=== PATIENT | female | born 1965 | race Caucasian/White ===

== ENCOUNTER → 2016-09-21 | Outpatient (CLI) | payer BC ==
[2016-09-21 21:31] LABS: BLOOD UREA NITROGEN 17 MG/DL (7-18); CREATININE FOR GFR 0.75 MG/DL (0.55-1.02); GLOMERULAR FILTRATION RATE > 60.0 (>51)
== END ==
LOC: M LRY 16:46
PROVIDERS: ATTEND Psychiatry & Neurology Neurology
DX: I10 Essential (primary) hypertension (principal)

== ENCOUNTER → 2016-09-26 | Outpatient (CLI) | payer BC ==
--- NOTE | 2016-09-26 13:36 | REP ---
MR BRAIN WITHOUT AND WITH CONTRAST: HISTORY: Multiple sclerosis. CONTRAST: ProHance 16 mL. COMPARISON: 01/13/2012. Multiple areas of increased signal intensity on T2-weighted images are present in the periventricular and subcortical white matter. Additional areas of increased signal intensity are present in the corpus callosum. These are unchanged compared to the previous study. There are no new areas of abnormal signal intensity. There is no intraparenchymal, hemorrhage, infarct, mass or midline shift. The ventricular system is normal in appearance. There is no extracerebral collection. A small extra-axial mass is present overlying the right cerebellum. This is isointense on T1 and hypointense on T2-weighted images. There is moderate homogenous enhancement with contrast. This represents a meningoma. The meningoma measures 1.2 cm in transverse by 1.2 cm in AP dimensions. There is very minimal mass effect on the adjacent right cerebellum. The fourth ventricle is midline in position. The sinuses are clear. IMPRESSION: 1. The above findings are consistent with multiple sclerosis that are unchanged compared to the previous study. 2. 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 Signed by Paul Montesinos MD 09/26/2016 01:39 P
== END ==
LOC: M RAD 10:59
PROVIDERS: ATTEND Psychiatry & Neurology Neurology
DX: G43.809 Other migraine, not intractable, without status migrainosus (principal); R53.83 Other fatigue
CPT/HCPCS: 70553; A9576

== ENCOUNTER → 2016-12-05 | Outpatient (REF) | payer BC ==
[2016-12-05 14:21] LABS: BASO % 0.7 % (0.0-1.0); EOS % 1.6 % (0.0-3.0); LARGE UNSTAINED CELL # 0.1 K/mm3 (0.0-0.4); LARGE UNSTAINED CELL % 3.9 % (0.0-4.0); LYMPH # 0.6 K/mm3 (1.5-4.5); LYMPH % 15.3 % (24.0-44.0); MEAN CORPUSCULAR HEMOGLOBIN 31.2 pg (27.0-33.0); MEAN CORPUSCULAR HGB CONC 33.4 g/dl (32.0-36.5); MEAN CORPUSCULAR VOLUME 93.2 fl (80.0-96.0); MONO # 0.3 K/mm3 (0.0-0.8); MONO % 8.5 % (0.0-5.0); NEUTROPHILS # 2.3 K/mm3 (1.8-7.7); PLATELET COUNT, AUTOMATED 205 k/mm3 (150-450); RED CELL DISTRIBUTION WIDTH 12.7 % (11.5-14.5); WHITE BLOOD COUNT 3.2 K/mm3 (4.0-10.0)
[2016-12-05 14:28] LABS: ALBUMIN 3.8 GM/DL (3.2-5.2); ALBUMIN/GLOBULIN RATIO 1.36 (1.00-1.93); ALKALINE PHOSPHATASE 99 U/L (45-117); ALT/SGPT 36 U/L (12-78); ANION GAP 6 MEQ/L (8-16); AST/SGOT 15 U/L (15-37); BILIRUBIN,TOTAL 0.7 MG/DL (0.2-1.0); BLOOD UREA NITROGEN 19 MG/DL (7-18); CALCIUM LEVEL 8.8 MG/DL (8.5-10.1); CARBON DIOXIDE LEVEL 30 MEQ/L (21-32); CHLORIDE LEVEL 107 MEQ/L (98-107); CREATININE FOR GFR 0.55 MG/DL (0.55-1.02); GLOMERULAR FILTRATION RATE > 60.0 (>51); GLUCOSE, FASTING 73 MG/DL (70-105); POTASSIUM SERUM 4.3 MEQ/L (3.5-5.1); SODIUM LEVEL 143 MEQ/L (136-145); TOTAL PROTEIN 6.6 GM/DL (6.4-8.2)
== END ==
LOC: M LABNEURO 13:15
PROVIDERS: ATTEND Psychiatry & Neurology Neurology
DX: G35 Multiple sclerosis (principal)

== ENCOUNTER → 2017-05-15 | Outpatient (REF) | payer BC ==
[2017-05-15 14:16] LABS: FOLATE 9.9 NG/ML
== END ==
LOC: M LAB REF 13:08
PROVIDERS: ATTEND Internal Medicine
DX: G35 Multiple sclerosis (principal)

== ENCOUNTER → 2017-06-05 | Outpatient (CLI) | payer BC ==
--- NOTE | 2017-06-05 13:05 | REP ---
Right ankle complete: 06/05/2017. Clinical history: Right ankle injury. No prior study. Four views of the ankle show some soft tissue swelling without visible or displaced fracture, avulsion or focal bone lesion. The mortise joint was symmetric and preserved. There is no talar dome osteochondral defect. Subtalar joints are intact. There is a plantar calcaneal spur. Accessory ossicle adjacent to the cuboid on the lateral view there is a plantar calcaneal spur. Impression: 1. Soft tissue swelling about the ankle without visible or displaced acute fracture, avulsion, disruption of the mortise joint or other acute bony finding. 2. Bone spur at the plantar calcaneus. Signed by Blanco Selby MD 06/06/2017 07:20 P
--- NOTE | 2017-06-05 13:20 | REP ---
Right knee, complete: 06/05/2017. Clinical history: Trauma. Injured knee, cannot flex it. No prior study. Findings: Six views are provided. The lateral view raises question of a suprapatellar effusion. There is no patellar subluxation or dislocation on the sunrise view. No joint space narrowing. There are small marginal osteophytes at the tibial spines and the medial joint line. Lateral joint line and patellofemoral margins are grossly intact. There are a few subcutaneous calcifications representing phleboliths adjacent to the proximal tibia. No loose body, osteochondral defect or joint space narrowing. No avulsion. Impression: 1. Suprapatellar effusion suspected without visible or displaced fracture, avulsion, joint space narrowing or other acute finding. Minor degenerative changes. 2. No visible osteochondral defect or loose body. Signed by Blanco Selby MD 06/06/2017 07:21 P
== END ==
LOC: M LRY 11:00
PROVIDERS: ATTEND Nurse Practitioner Family
DX: S99.911A Unspecified injury of right ankle, initial encounter (principal); S89.91XA Unspecified injury of right lower leg, initial encounter; X58.XXXA Exposure to other specified factors, initial encounter; Y92.89 Other specified places as the place of occurrence of the external cause; Y93.9 Activity, unspecified

== ENCOUNTER → 2017-07-31 | Outpatient (CLI) | payer BC | LOC: M WHC 11:18 | DX: Z12.31 Encounter for screening mammogram for malignant neoplasm of breast (principal); Z78.0 Asymptomatic menopausal state | CPT/HCPCS: 77067 ==

== ENCOUNTER → 2017-07-31 | Outpatient (REF) | payer BC ==
[2017-08-02 14:14] LABS: HPV HYBRID CAPTURE II Negative (Negative)
== END ==
LOC: M SFHCWAGY 12:07
DX: Z12.4 Encounter for screening for malignant neoplasm of cervix (principal)
CPT/HCPCS: G0123

== ENCOUNTER → 2017-12-25 | Outpatient (REF) | payer BC ==
[2017-12-25 19:32] LABS: RHEUMATOID FACTOR QUANT < 10.0 IU/ML (<15.0)
[2017-12-25 19:37] LABS: FOLATE 9.7 NG/ML; VITAMIN B12 LEVEL 210 PG/ML
[2017-12-27 14:47] LABS: ANTINUCLEAR ANTIBODIES DIRECT Negative (Negative)
== END ==
LOC: M LAB REF 17:17
DX: G62.9 Polyneuropathy, unspecified (principal); G35 Multiple sclerosis
CPT/HCPCS: 82746

== ENCOUNTER 2018-04-12 08:04 | Day surgery (SDC) | payer BC ==
[2018-04-12] MEDS: NS 1,000 ML IV (06:00)
[2018-04-12] MEDS ORDERED: LIDOCAINE 2% INJ 100 MG/5 ML SDV (FOR ANES.) As Ordered (09:21)
[2018-04-12] MEDS ORDERED: PROPOFOL 200 MG/20 ML VIAL As Ordered (09:21)
== END 2018-04-12 10:21 | disposition home or self-care (01) ==
LOC: M OPP 08:04
DX: Z12.11 Encounter for screening for malignant neoplasm of colon (principal); Z86.010 Personal history of colon polyps; Z80.0 Family history of malignant neoplasm of digestive organs; I10 Essential (primary) hypertension; M54.2 Cervicalgia; R51 Headache; G35 Multiple sclerosis; Z78.0 Asymptomatic menopausal state; Z87.442 Personal history of urinary calculi; Z79.899 Other long term (current) drug therapy
CPT/HCPCS: G0105

== ENCOUNTER → 2018-05-21 | Outpatient (REF) | payer BC ==
[2018-05-21 13:11] LABS: FOLATE 11.9 NG/ML; VITAMIN B12 LEVEL 863 PG/ML
== END ==
LOC: M LAB REF 12:03
DX: D72.819 Decreased white blood cell count, unspecified (principal); G35 Multiple sclerosis

== ENCOUNTER → 2018-06-11 | Outpatient (REF) | payer BC ==
[2018-06-11 13:34] LABS: BASO % 0.5 % (0.0-1.0); EOS # 0.1 10^3/uL (0.0-0.50); EOS % 1.9 % (0.0-3.0); HEMATOCRIT 39.9 % (36.0-47.0); HEMOGLOBIN 13.4 g/dl (12.0-15.5); IMMATURE GRANULOCYTE % 0.3 % (0-3.0); LYMPH # 0.6 10^3/uL (1.5-4.5); LYMPH % 15.3 % (24.0-44.0); MEAN CORPUSCULAR HEMOGLOBIN 31.2 pg (27.0-33.0); MEAN CORPUSCULAR HGB CONC 33.6 g/dl (32.0-36.5); MONO # 0.3 10^3/uL (0.0-0.8); MONO % 7.1 % (0.0-5.0); NEUTROPHILS # 2.8 10^3/uL (1.8-7.7); NEUTROPHILS % 74.9 % (36.0-66.0); PLATELET COUNT, AUTOMATED 207 10^3/uL (150-450); RED BLOOD COUNT 4.29 10^6/uL (4.00-5.40); RED CELL DISTRIBUTION WIDTH 12.1 % (11.5-14.5); WHITE BLOOD COUNT 3.7 10^3/uL (4.0-10.0)
[2018-06-11 14:03] LABS: ALBUMIN 3.8 GM/DL (3.2-5.2); ALBUMIN/GLOBULIN RATIO 1.31 (1.00-1.93); ALKALINE PHOSPHATASE 105 U/L (45-117); ALT/SGPT 30 U/L (12-78); ANION GAP 6 MEQ/L (8-16); AST/SGOT 14 U/L (7-37); BILIRUBIN,TOTAL 0.5 MG/DL (0.2-1.0); BLOOD UREA NITROGEN 18 MG/DL (7-18); CALCIUM LEVEL 8.2 MG/DL (8.5-10.1); CARBON DIOXIDE LEVEL 29 MEQ/L (21-32); CHLORIDE LEVEL 108 MEQ/L (98-107); GLOMERULAR FILTRATION RATE > 60.0 (>51); GLUCOSE, FASTING 77 MG/DL (70-100); POTASSIUM SERUM 4.2 MEQ/L (3.5-5.1); RHEUMATOID FACTOR QUANT < 10.0 IU/ML (<15.0); SODIUM LEVEL 143 MEQ/L (136-145); TOTAL PROTEIN 6.7 GM/DL (6.4-8.2)
[2018-06-11 14:22] LABS: ERYTHROCYTE SEDIMENTATION RATE 7 mm/hr (0-30)
[2018-06-12 10:17] LABS: ANTINUCLEAR ANTIBODIES DIRECT Negative (Negative)
[2018-06-12 11:42] LABS: DRVV SCREEN 38.2 SEC
[2018-06-12 11:48] LABS: PTT LUPUS TYPE ANTICOAG SCREEN 0.9 (0-1.2)
== END ==
LOC: M LABNEURO 10:37
DX: G35 Multiple sclerosis (principal)
CPT/HCPCS: 80053

== ENCOUNTER → 2019-02-25 | Outpatient (CLI) | payer BC ==
[~2019-02-25] MED LIST: LISI-538 PO; TECF240C PO; TYLE500T78 PO; VITA100018 PO; VITA500T PO
--- NOTE | 2019-02-25 15:56 | REPMRS ---
Patient History The patient states she had a clinical breast exam in 01/2019. Patient is postmenopausal. Family history of colorectal cancer at age 50 or over in father, colorectal cancer in paternal aunt, breast cancer at age 50 or over in paternal cousin, breast cancer under age 50 in paternal cousin. No Hormone Replacement Therapy 3D TOMOSYNTHESIS WAS PERFORMED. The [facility] lifetime risk for breast cancer is 8.9%. Digital Woman Screen Mammo: February 25, 2019 - Exam #: [id number] Bilateral CC and MLO view(s) were taken. Technologist: Cat Dumont, Technologist Prior study comparison: July 31, 2017, digital woman screen mammo performed at [facility]. April 04, 2016, digital woman screen mammo performed at [facility]. FINDINGS: The breast tissue is heterogeneously dense. This may lower the sensitivity of mammography. There has been no change in the appearance of the mammogram from the prior studies. There is a moderate amount of residual fibroglandular tissue which is fairly symmetric. There is no interval development of dominant mass, areas of architectural distortion, or clustered microcalcification typical of malignancy. Assessment: BI-RADS/ACR category 1 mammogram. Negative Mammogram. Recommendation Routine screening mammogram in 1 year (for women over age 40). This mammogram was interpreted with the aid of an FDA-approved computer-aided dectection system. Electronically Signed By: Kashmir Vasques MD 02/25/19 [id number]
== END ==
LOC: M WHC 14:33
PROVIDERS: ATTEND Nurse Practitioner Family
DX: Z12.31 Encounter for screening mammogram for malignant neoplasm of breast (principal); Z78.0 Asymptomatic menopausal state; Z80.0 Family history of malignant neoplasm of digestive organs

== ENCOUNTER → 2019-04-30 | Outpatient (CLI) | payer BC ==
--- NOTE | 2019-04-30 17:27 | REP ---
Clinical: Acute bronchitis . Comparison: None . Technique: PA and lateral. Findings: The mediastinum and cardiac silhouette are normal. The lung adam are clear and without acute consolidation, effusion, or pneumothorax. The skeletal structures are intact and normal. Impression: 1. No acute cardiopulmonary process. Electronically Signed by Chong Nugent MD 04/30/2019 05:18 P
== END ==
LOC: M LRY 17:03
PROVIDERS: ATTEND Physician Assistant
DX: J20.9 Acute bronchitis, unspecified (principal)

== ENCOUNTER → 2019-05-10 | Outpatient (CLI) | payer BC ==
--- NOTE | 2019-05-10 16:57 | REP ---
Chest x-ray: Two views. History: Bronchitis . Comparison study: April 30, 2019 . Findings: The lungs are well inflated and free of infiltrate. The pleural angles are sharp. The heart size is normal. Pulmonary vasculature is not increased. No significant bony abnormality is seen. Impression: Negative chest x-ray. Electronically Signed by Elvin Franco MD 05/10/2019 04:48 P
== END ==
LOC: M LRY 16:15
PROVIDERS: ATTEND Nurse Practitioner Family
DX: J40 Bronchitis, not specified as acute or chronic (principal)

== ENCOUNTER → 2019-05-13 | Outpatient (REF) | payer BC ==
[2019-05-13 18:43] LABS: INFLUENZA A AMPLIFICATION NEGATIVE (NEGATIVE); INFLUENZA B AMPLIFICATION NEGATIVE (NEGATIVE)
== END ==
LOC: M LAB REF 17:25
PROVIDERS: ATTEND Registered Nurse
DX: R06.02 Shortness of breath (principal); R05 Cough

== ENCOUNTER → 2020-02-03 | Outpatient (REF) | payer BC ==
[~2020-02-03] MED LIST changes: +VITA-243 PO; -VITA500T PO
== END ==
LOC: M LAB REF 08:52
PROVIDERS: ATTEND Internal Medicine
DX: G35 Multiple sclerosis (principal)

== ENCOUNTER → 2020-04-06 | Outpatient (CLI) | payer BC ==
--- NOTE | 2020-04-06 15:23 | REPMRS ---
Patient History The patient states she had a clinical breast exam in 2019. Family history of colorectal cancer at age 50 or over in father, colorectal cancer in paternal aunt, breast cancer at age 50 or over in paternal cousin, breast cancer under age 50 in paternal cousin. No Hormone Replacement Therapy 3D TOMOSYNTHESIS WAS PERFORMED. [facility] lifetime risk for breast cancer is 8.7%. VOLPARA DENSITY B. Digital Woman Screen Mammo: April 06, 2020 - Exam #: [id number] Bilateral CC and MLO view(s) were taken. Technologist: Toya Claire, Technologist Prior study comparison: February 25, 2019, bilateral digital woman screen mammo performed at [facility]. July 31, 2017, digital woman screen mammo performed at [facility]. FINDINGS: The breast tissue is heterogeneously dense. This may lower the sensitivity of mammography. There has been no change in the appearance of the mammogram from the prior studies. There is a moderate amount of residual fibroglandular tissue which is fairly symmetric. There is no interval development of dominant mass, areas of architectural distortion, or clustered microcalcification typical of malignancy. Assessment: BI-RADS/ACR category 1 mammogram. Negative Mammogram. Recommendation Routine screening mammogram in 1 year (for women over age 40). This mammogram was interpreted with the aid of an FDA-approved computer-aided dectection system. Electronically Signed By: Kashmir Vasques MD 04/06/20 [id number]
== END ==
LOC: M WHC 13:16
PROVIDERS: ATTEND Nurse Practitioner Family
DX: Z12.31 Encounter for screening mammogram for malignant neoplasm of breast (principal); Z12.4 Encounter for screening for malignant neoplasm of cervix; Z80.0 Family history of malignant neoplasm of digestive organs; Z80.3 Family history of malignant neoplasm of breast
CPT/HCPCS: 77063; 77067; 87624; G0123

== ENCOUNTER → 2020-04-06 | Outpatient (REF) | payer BC | LOC: M PLALAB 14:02 | PROVIDERS: ATTEND Nurse Practitioner Family | DX: Z12.4 Encounter for screening for malignant neoplasm of cervix (principal) ==

== ENCOUNTER → 2020-09-17 | Outpatient (REF) | payer BC ==
[~2020-09-17] MED LIST changes: -LISI-538 PO; +LISI20TA33 PO
== END ==
LOC: M LAB REF 16:16
PROVIDERS: ATTEND Internal Medicine
DX: G35 Multiple sclerosis (principal); D32.9 Benign neoplasm of meninges, unspecified

== ENCOUNTER → 2021-03-31 | Outpatient (REF) | payer BC | LOC: M LAB REF 16:36 | PROVIDERS: ATTEND Physician Assistant Medical | DX: R35.0 Frequency of micturition (principal) ==

== ENCOUNTER → 2021-04-19 | Outpatient (REF) | payer BC | LOC: M LAB REF 16:35 | PROVIDERS: ATTEND Internal Medicine | DX: G35 Multiple sclerosis (principal) ==

== ENCOUNTER → 2021-12-08 | Outpatient (CLI) | payer BC | LOC: M WHC 13:48 | PROVIDERS: ATTEND Advanced Practice Midwife | DX: Z12.31 Encounter for screening mammogram for malignant neoplasm of breast (principal); Z80.0 Family history of malignant neoplasm of digestive organs; Z80.3 Family history of malignant neoplasm of breast; Z80.49 Family history of malignant neoplasm of other genital organs ==

== ENCOUNTER → 2021-12-22 | Outpatient (REF) | payer BC ==
[2021-12-22 17:54] LABS: FOLATE 11.9 NG/ML
== END ==
LOC: M LAB REF 16:16
PROVIDERS: ATTEND Internal Medicine
DX: G35 Multiple sclerosis (principal)

== ENCOUNTER → 2022-11-29 | Outpatient (CLI) | payer BC ==
[~2022-11-29] MED LIST changes: +ACET650T15 PO; +BACTDSTA PO; +LOSA100T46 PO; +[UNRECOGNIZED DRUG - CODE] PO
== END ==
LOC: M RAD 18:36
DX: M79.671 Pain in right foot (principal)

== ENCOUNTER 2022-12-04 07:08 | Emergency (ER) | payer BC ==
[~2022-12-04] VITALS: Ht 165.1 cm; Wt 79.5 kg
[~2022-12-04 07:08] MED LIST changes: -ACET650T15 PO; -BACTDSTA PO; -LOSA100T46 PO; -[UNRECOGNIZED DRUG - CODE] PO
[2022-12-04] MEDS ORDERED: NS 1,000 ML IV ONE ×2 (07:30→08:50)
[2022-12-04 08:06] LABS: BASO % 0.2 % (0.0-1.0); EOS # 0.1 10^3/uL (0.0-0.5); EOS % 0.9 % (0.0-3.0); HEMOGLOBIN 12.2 g/dl (12.0-15.5); LYMPH # 0.4 10^3/uL (1.5-5.0); LYMPH % 7.5 % (24.0-44.0); MEAN CORPUSCULAR HEMOGLOBIN 30.4 pg (27.0-33.0); MEAN CORPUSCULAR VOLUME 92.3 fl (80.0-96.0); MONO # 0.5 10^3/uL (0.0-0.8); MONO % 8.3 % (2.0-8.0); NEUTROPHILS # 4.8 10^3/uL (1.5-8.5); NEUTROPHILS % 82.8 % (36.0-66.0); PLATELET COUNT, AUTOMATED 155 10^3/uL (150-450); RED BLOOD COUNT 4.01 10^6/uL (4.00-5.40); WHITE BLOOD COUNT 5.8 10^3/uL (4.0-10.0)
[2022-12-04] MEDS ORDERED: BACTDSTA PO (08:19)
[2022-12-04] MEDS ORDERED: LOSA100T46 PO (08:19)
[2022-12-04 08:29] LABS: BLOOD UREA NITROGEN 13 MG/DL (9-23); CALCIUM LEVEL 7.1 MG/DL (8.5-10.1); CARBON DIOXIDE LEVEL 24 MMOL/L (20-31); CHLORIDE LEVEL 107 MMOL/L (98-107); CREATININE FOR GFR 0.69 MG/DL (0.55-1.30); GLOMERULAR FILTRATION RATE > 60.0 (>51); GLUCOSE, FASTING 130 MG/DL (60-100); MAGNESIUM LEVEL 1.7 MG/DL (1.8-2.4); POTASSIUM SERUM 3.1 MMOL/L (3.5-5.1); SODIUM LEVEL 141 MMOL/L (136-145)
[2022-12-04 08:31] LABS: THYROID STIMULATING HORMONE 1.524 uIU/ML (0.55-4.78)
[2022-12-04 08:32] LABS: FREE T4 1.09 NG/DL (0.89-1.76)
[2022-12-04] MEDS ORDERED: POTASSIUM CHLORIDE 10MEQ SR TABLET PO ONE (08:45)
[2022-12-04] MEDS ORDERED: MAG SULF 1GM/100ML (MAG RUN) 1 GM in IV 1 EA IV ONE (08:45)
[2022-12-04] MEDS ORDERED: ACET650T15 PO (09:32)
[2022-12-04] MEDS ORDERED: [UNRECOGNIZED DRUG - CODE] PO (09:36)
[2022-12-04] MEDS ORDERED: HOME MED LIST COMPLETE! XX SCH (09:40)
[2022-12-04] MEDS ORDERED: NIRMATRELVIR/RITONAVIR CO-PACK (EMERGENCY USE AUTH) PO SCH ×2 (10:00→21:00)
[2022-12-04 11:11] VITALS: BP 174/95; TEMP 98.4; O2SAT 98
== END 2022-12-04 11:25 | disposition home or self-care (01) ==
LOC: EDBD 07:08 → M ED 07:08
DX: U07.1 COVID-19 (principal); E87.6 Hypokalemia; I10 Essential (primary) hypertension; G35 Multiple sclerosis; H53.2 Diplopia; G43.909 Migraine, unspecified, not intractable, without status migrainosus; Z79.899 Other long term (current) drug therapy; Z88.1 Allergy status to other antibiotic agents
CPT/HCPCS: 80048; 81001; 82330; 83735; 84439; 84443; 85025; 87486; 87581; 87633; 87798; 93005; 93041; 94760; 99285; J3475

== ENCOUNTER → 2023-01-09 | Outpatient (REF) | payer BC ==
[~2023-01-09] MED LIST changes: +ACET650T15 PO; +BACTDSTA PO; +LOSA100T46 PO; +[UNRECOGNIZED DRUG - CODE] PO
[2023-01-09 17:51] LABS: C REACTIVE PROTEIN QUANTITATIV < 0.40 MG/DL (<1.0)
[2023-01-09 17:53] LABS: RHEUMATOID FACTOR QUANT < 3.5 IU/ML (<14)
== END ==
LOC: M LAB REF 16:40
PROVIDERS: ATTEND Internal Medicine
DX: M79.604 Pain in right leg (principal)

== ENCOUNTER → 2023-01-10 | Outpatient (CLI) | payer BC | LOC: M RAD 08:37 | PROVIDERS: ATTEND Internal Medicine | DX: R22.41 Localized swelling, mass and lump, right lower limb (principal) ==

== ENCOUNTER → 2023-02-13 | Outpatient (REF) | payer BC | LOC: M SFHCWAGY 17:08 | PROVIDERS: ATTEND Nurse Practitioner Family | DX: Z12.4 Encounter for screening for malignant neoplasm of cervix (principal); R87.610 Atypical squamous cells of undetermined significance on cytologic smear of cervix (ASC-US); N95.2 Postmenopausal atrophic vaginitis | CPT/HCPCS: 87624; G0123 ==

== ENCOUNTER → 2023-02-13 | Outpatient (CLI) | payer BC | LOC: M WHC 12:48 | PROVIDERS: ATTEND Nurse Practitioner Family | DX: Z12.31 Encounter for screening mammogram for malignant neoplasm of breast (principal) ==

== ENCOUNTER → 2023-12-26 | Outpatient (REF) | payer BC | LOC: M LAB REF 17:17 | PROVIDERS: ATTEND Internal Medicine | DX: G89.29 Other chronic pain (principal) ==

== ENCOUNTER → 2023-12-27 | Outpatient (CLI) | payer BC | LOC: M WUC 09:17 | PROVIDERS: ATTEND Internal Medicine | DX: R06.02 Shortness of breath (principal) ==

== ENCOUNTER → 2024-01-17 | Outpatient (CLI) | payer BC | LOC: M PLAIMG 10:54 | PROVIDERS: ATTEND Internal Medicine | DX: R06.02 Shortness of breath (principal); R94.31 Abnormal electrocardiogram [ECG] [EKG]; R53.1 Weakness; I51.0 Cardiac septal defect, acquired ==

== ENCOUNTER → 2024-03-19 | Outpatient (REF) | payer BC ==
[2024-03-21 15:22] LABS: HPV APTIMA Not Detected (Not Detected)
== END ==
LOC: M SFHCWAGY 13:43
PROVIDERS: ATTEND Obstetrics & Gynecology
DX: Z12.31 Encounter for screening mammogram for malignant neoplasm of breast (principal)

== ENCOUNTER → 2024-03-19 | Outpatient (CLI) | payer BC | LOC: M WHC 08:38 | PROVIDERS: ATTEND Obstetrics & Gynecology | DX: Z12.31 Encounter for screening mammogram for malignant neoplasm of breast (principal); R92.333 Mammographic heterogeneous density, bilateral breasts ==

== ENCOUNTER 2024-06-05 23:55 | Emergency (ER) | payer BC ==
[~2024-06-05] VITALS: Ht 165.1 cm; Wt 78.6 kg
[2024-06-06 00:39] LABS: BASO % 0.2 % (0.0-1.0); EOS # 0.1 10^3/uL (0.0-0.5); EOS % 1.7 % (0.0-3.0); HEMOGLOBIN 13.1 g/dl (12.0-15.5); LYMPH # 0.6 10^3/uL (1.5-5.0); LYMPH % 13.7 % (24.0-44.0); MEAN CORPUSCULAR HEMOGLOBIN 31.1 pg (27.0-33.0); MEAN CORPUSCULAR HGB CONC 33.6 g/dl (32.0-36.5); MEAN CORPUSCULAR VOLUME 92.6 fl (80.0-96.0); MONO # 0.4 10^3/uL (0.0-0.8); MONO % 9.4 % (2.0-8.0); NEUTROPHILS # 3.1 10^3/uL (1.5-8.5); NEUTROPHILS % 74.8 % (36.0-66.0); PLATELET COUNT, AUTOMATED 208 10^3/uL (150-450); RED BLOOD COUNT 4.21 10^6/uL (4.00-5.40); WHITE BLOOD COUNT 4.2 10^3/uL (4.0-10.0)
[2024-06-06 01:04] LABS: CPK CREATINE PHOSPHOKINASE 86 U/L (34-145)
[2024-06-06 01:05] LABS: BLOOD UREA NITROGEN 21 MG/DL (9-23); CALCIUM LEVEL 8.7 MG/DL (8.5-10.1); CARBON DIOXIDE LEVEL 27 MMOL/L (20-31); CHLORIDE LEVEL 107 MMOL/L (98-107); CK-MB VALUE MASS < 1.0 NG/ML (<3.6); CREATININE FOR GFR 0.55 MG/DL (0.55-1.30); GLOMERULAR FILTRATION RATE > 60.0 (>51); GLUCOSE, FASTING 113 MG/DL (60-100); MB/CK RELATIVE INDEX 1.16 (< OR =4); POTASSIUM SERUM 4.3 MMOL/L (3.5-5.1); SODIUM LEVEL 140 MMOL/L (136-145)
[2024-06-06] MEDS ORDERED: OMEP40CA4 PO (02:33)
[2024-06-06 02:35] LABS: CK-MB VALUE MASS < 1.0 NG/ML (<3.6)
[2024-06-06 02:36] LABS: CPK CREATINE PHOSPHOKINASE 85 U/L (34-145); MB/CK RELATIVE INDEX 1.17 (< OR =4)
[2024-06-06 02:43] VITALS: BP 151/89; TEMP 97; O2SAT 98
== END 2024-06-06 02:43 | disposition home or self-care (01) ==
LOC: M ED 06-06 00:56
DX: R07.89 Other chest pain (principal); I10 Essential (primary) hypertension; Z87.442 Personal history of urinary calculi; Z79.899 Other long term (current) drug therapy; Z88.1 Allergy status to other antibiotic agents

== ENCOUNTER 2024-06-14 08:03 | Day surgery (SDC) | payer BC ==
[~2024-06-14] VITALS: Ht 165.1 cm; Wt 78.0 kg
[~2024-06-14 08:03] MED LIST changes: +OMEP40CA4 PO
[2024-06-14] MEDS ORDERED: propofoL 200 MG/20 ML VIAL As Ordered ONE (08:47)
[2024-06-14] MEDS ORDERED: LIDOCAINE 2% 100MG/5ML SDV (FOR ANES.) As Ordered ONE (08:47)
[2024-06-14] MEDS ORDERED: LABETALOL 100MG/20ML VIAL As Ordered ONE (09:34)
[2024-06-14 10:15] VITALS: BP 159/78; O2SAT 100
== END 2024-06-14 10:28 | disposition home or self-care (01) ==
LOC: M OPP 08:03
PROVIDERS: ATTEND Surgery
DX: D12.7 Benign neoplasm of rectosigmoid junction (principal); R19.7 Diarrhea, unspecified; R10.84 Generalized abdominal pain; D12.5 Benign neoplasm of sigmoid colon; D12.4 Benign neoplasm of descending colon; D12.3 Benign neoplasm of transverse colon; D12.2 Benign neoplasm of ascending colon; I10 Essential (primary) hypertension; G35 Multiple sclerosis; Z79.899 Other long term (current) drug therapy; R32 Unspecified urinary incontinence; Z88.1 Allergy status to other antibiotic agents
CPT/HCPCS: 45380; 45385; 88305; J1920

== ENCOUNTER → 2024-10-29 | Outpatient (REF) | payer BC, OTHER ==
[2024-10-29 19:28] LABS: % LABILE ALKALINE PHOSPHATASE 30.5 %
== END ==
LOC: M LAB REF 17:29
PROVIDERS: ATTEND Internal Medicine
DX: R74.8 Abnormal levels of other serum enzymes (principal)

== ENCOUNTER → 2025-05-06 | Outpatient (REF) | payer OTHER ==
[~2025-05-06] MED LIST changes: +ACET-1515 PO; -ACET650T15 PO
[2025-05-06 18:58] LABS: % LABILE ALKALINE PHOSPHATASE 70.3 %; LABILE ALKPHOS 90.0 U/L; STABLE ALKPHOS 38.0 U/L
== END ==
LOC: M LAB REF 17:28
PROVIDERS: ATTEND Internal Medicine
DX: R74.8 Abnormal levels of other serum enzymes (principal)

== ENCOUNTER → 2025-05-20 | Outpatient (CLI) | payer OTHER | LOC: M WHC 13:56 | PROVIDERS: ATTEND Advanced Practice Midwife | DX: Z12.31 Encounter for screening mammogram for malignant neoplasm of breast (principal); R92.323 Mammographic fibroglandular density, bilateral breasts ==

== ENCOUNTER → 2025-05-20 | Outpatient (REF) | payer OTHER ==
[2025-05-22 17:27] LABS: HPV APTIMA Not Detected (Not Detected)
== END ==
LOC: M SFHCWAGY 17:35
PROVIDERS: ATTEND Advanced Practice Midwife
DX: Z12.4 Encounter for screening for malignant neoplasm of cervix (principal)
CPT/HCPCS: 87624; G0123

== ENCOUNTER → 2025-06-12 | Outpatient (CLI) | payer OTHER ==
[~2025-06-12] MED LIST changes: -BACTDSTA PO; +SULF-8 PO
== END ==
LOC: M PLARAD 09:31
PROVIDERS: ATTEND Physician Assistant
DX: R93.89 Abnormal findings on diagnostic imaging of other specified body structures (principal); R74.8 Abnormal levels of other serum enzymes; K59.00 Constipation, unspecified; R10.31 Right lower quadrant pain; K86.89 Other specified diseases of pancreas; K86.2 Cyst of pancreas